=== PATIENT | female | born 1985 | race Caucasian/White ===

== ENCOUNTER 2018-01-20 22:27 | Emergency (ER) | payer SELFPAY ==
[~2018-01-20] VITALS: Ht 152.4 cm; Wt 67.6 kg
[2018-01-20 23:22] LABS: CULTURE INDICATED? YES; MICROSCOPIC INDICATED
[2018-01-20 23:23] LABS: HCG UR SG 1.018 (1.003-1.030)
[2018-01-20] MEDS ORDERED: LEVO88TA2 PO (23:37)
[2018-01-20] MEDS ORDERED: PHENAZOPYRIDINE 200 MG TABLET ONE (23:46)
[2018-01-20] MEDS ORDERED: ONDANSETRON ODT 4 MG ONE (23:46)
[2018-01-20] MEDS ORDERED: CIPROFLOXACIN 500 MG TABLET ONE (23:47)
[2018-01-21] MEDS ORDERED: PHENAZOPYRIDINE 200 MG TABLET PO ONE
[2018-01-21] MEDS ORDERED: CIPROFLOXACIN 500 MG TABLET PO ONE
[2018-01-21] MEDS ORDERED: ONDANSETRON ODT 4 MG PO ONE
[2018-01-21 00:02] VITALS: BP 144/109
== END 2018-01-21 00:05 | disposition home or self-care (01) ==
LOC: ED 23:57
DX: N30.90 Cystitis, unspecified without hematuria (principal); Z88.0 Allergy status to penicillin; Z87.891 Personal history of nicotine dependence
CPT/HCPCS: 81001; 81025; 87086; 99284; Q0162; 87077

== ENCOUNTER 2020-06-25 19:20 | Observation (INO) | payer OTHER ==
[~2020-06-25] VITALS: Ht 154.9 cm; Wt 77.0 kg
[~2020-06-25 19:20] MED LIST: LEVO88TA2 PO
[2020-06-25] MEDS ORDERED: LABETALOL 200 MG TABLET ONE (19:53)
[2020-06-25] MEDS ORDERED: PLEASE ENTER HEIGHT AND WEIGHT MC SCH (20:00)
[2020-06-25] MEDS ORDERED: LABETALOL 200 MG TABLET PO ONE (20:00)
[2020-06-25 20:19] VITALS: BP 158/109
[2020-06-25 20:37] LABS: BASOPHILS % (AUTO) 0 % (0-1); EOSINOPHILS % (AUTO) 1 % (1-7); LYMPHOCYTES % (AUTO) 18 % (22-44); MEAN CORPUSCULAR HEMOGLOBIN 30.8 pg (27.0-34.8); MEAN CORPUSCULAR HGB CONC 33.9 g/dL (32.4-35.8); MEAN PLATELET VOLUME 9.6 fL (7.4-10.4); MONOCYTES % (AUTO) 9 % (2-9); NEUTROPHILS % (AUTO) 71 % (42-75); PLATELET COUNT 175 x10^3/uL (130-400); RED BLOOD COUNT 4.16 x10^6/uL (3.82-5.3); RED CELL DISTRIBUTION WIDTH 13.6 % (9.6-15.2)
[2020-06-25 20:42] LABS: ALBUMIN 2.4 g/dL (3.4-5.0); ANION GAP 8 mmol/L (5-15); CALCIUM 8.5 mg/dL (8.5-10.1); CHLORIDE 109 mmol/L (98-107)
[2020-06-25 20:43] LABS: MD NO
[2020-06-25 20:46] LABS: ALANINE AMINOTRANSFERASE 25 U/L (12-78); ALKALINE PHOSPHATASE 121 U/L (45-117); BILIRUBIN,TOTAL 0.2 mg/dL (0.2-1.0); CREATININE 0.56 mg/dL (0.55-1.02); TOTAL PROTEIN 6.2 g/dL (6.4-8.2)
[2020-06-25 20:48] LABS: BILIRUBIN, DIRECT < 0.1 mg/dL (0.1-0.2)
[2020-06-25 20:51] LABS: MICROSCOPIC INDICATED
[2020-06-25] MEDS ORDERED: DIPHENHYDRAMINE 12.5MG/5ML, 10ML UDC PO PRN (21:00)
[2020-06-25] MEDS ORDERED: DIPHENHYDRAMINE 12.5MG/5ML ORAL SOL PO PRN (21:09)
[2020-06-25] MEDS ORDERED: PREN1COM10 PO (22:49)
== END 2020-06-25 23:26 | disposition home or self-care (01) ==
LOC: LDOP 19:20 → INTOOBSV 23:08 → LDIP 23:08
PROVIDERS: ADMIT Obstetrics & Gynecology; ATTEND Obstetrics & Gynecology
DX: O10.913 Unspecified pre-existing hypertension complicating pregnancy, third trimester (principal); Z88.0 Allergy status to penicillin; Z79.899 Other long term (current) drug therapy; Z3A.32 32 weeks gestation of pregnancy
CPT/HCPCS: 36415; 59025; 80053; 81001; 82248; 82570; 84156; 84550; 85025; 87086; G0378

== ENCOUNTER 2020-07-08 12:20 | Emergency (ER) | payer OTHER ==
[~2020-07-08 12:20] MED LIST changes: +PREN1COM10 PO
--- NOTE | 2020-07-08 12:25 | NUR ---
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
[2020-07-08 17:48] LABS: FREE T4 (FREE THYROXINE) 0.91 ng/dL (0.76-1.46)
[2020-07-08] MEDS ORDERED: LABE200T6 PO (19:34)
[2020-07-09] MEDS ORDERED: ONDANSETRON 2MG/ML, 2ML ONE (14:59)
[2020-07-09] MEDS ORDERED: MEPERIDINE/PF 50 MG/ML ONE (14:59)
[2020-07-09] MEDS ORDERED: PLEASE ENTER HEIGHT AND WEIGHT MC SCH (17:00)
[2020-07-09] MEDS ORDERED: KETOROLAC 30 MG/1 ML ONE (17:51)
== END 2020-07-08 15:24 ==
LOC: ED 15:18
DX: I10 Essential (primary) hypertension (principal); Z53.21 Procedure and treatment not carried out due to patient leaving prior to being seen by health care provider
CPT/HCPCS: 36415; 84439; 84443

== ENCOUNTER 2020-07-08 12:34 | Inpatient (IN) | payer OTHER ==
[2020-07-08] VITALS (7 sets, daily range): BP systolic 124–188; BP diastolic 73–138
[~2020-07-08] VITALS: Ht 154.9 cm; Wt 79.1 kg
[2020-07-08] MEDS ORDERED: BETAMETHASONE 6 MG/ML, 5ML IM ONE (13:07)
[2020-07-08] MEDS: BETAMETHASONE 6 MG/ML, 5ML IM SCH (13:12)
[2020-07-08] MEDS ORDERED: LABETALOL 5MG/ML, 20ML IVPush ONE (13:30)
[2020-07-08] MEDS ORDERED: LABETALOL 200 MG TABLET PO SCH (13:30)
[2020-07-08 13:52] LABS: BASOPHILS % (AUTO) 1 % (0-1); EOSINOPHILS % (AUTO) 1 % (1-7); LYMPHOCYTES % (AUTO) 20 % (22-44); MEAN PLATELET VOLUME 9.3 fL (7.4-10.4); MONOCYTES % (AUTO) 6 % (2-9); NEUTROPHILS % (AUTO) 72 % (42-75); PLATELET COUNT 164 x10^3/uL (130-400); RED BLOOD COUNT 4.28 x10^6/uL (3.82-5.3); RED CELL DISTRIBUTION WIDTH 14.3 % (9.6-15.2)
[2020-07-08 13:54] LABS: MD NO
[2020-07-08 14:01] LABS: ALANINE AMINOTRANSFERASE 29 U/L (12-78); ALBUMIN 2.1 g/dL (3.4-5.0); ANION GAP 9 mmol/L (5-15); CHLORIDE 111 mmol/L (98-107)
[2020-07-08 14:04] LABS: MICROSCOPIC INDICATED
[2020-07-08 14:04] LABS: ALKALINE PHOSPHATASE 138 U/L (45-117); BILIRUBIN,TOTAL 0.3 mg/dL (0.2-1.0); CREATININE 0.71 mg/dL (0.55-1.02); TOTAL PROTEIN 5.8 g/dL (6.4-8.2)
[2020-07-08 14:05] LABS: BILIRUBIN, DIRECT < 0.1 mg/dL (0.1-0.2)
[2020-07-08] MEDS ORDERED: LABETALOL 5MG/ML, 20ML ONE (16:25)
[2020-07-08] MEDS ORDERED: LABETALOL 5MG/ML, 20ML IVPush PRN ×3 (16:30)
[2020-07-08] MEDS ORDERED: hydrALAzine 20 MG/ML, 1ML IVPush ONE (17:00)
[2020-07-08] MEDS ORDERED: LABE200T6 PO (19:34)
[2020-07-08] MEDS ORDERED: MAGNESIUM SULFATE PMX 4GM/100M 100 ML ONE (20:17)
[2020-07-08] MEDS ORDERED: MAGNESIUM SULF. PMX 20GM/500ML 500 ML IV ONE (20:17)
[2020-07-08] MEDS ORDERED: ONDANSETRON 2MG/ML, 2ML IVPush PRN (20:30)
[2020-07-08] MEDS ORDERED: MAGNESIUM SULFATE PMX 4GM/100M 100 ML IVPB ONE (20:30)
[2020-07-08] MEDS ORDERED: ACETAMINOPHEN 325 MG TABLET ONE (20:33)
[2020-07-08] MEDS: ACETAMINOPHEN 325 MG TABLET PO PRN (20:35)
[2020-07-08] MEDS: MAGNESIUM SULF. PMX 20GM/500ML 500 ML IV SCH (21:04)
[2020-07-09] VITALS (7 sets, daily range): BP systolic 115–162; BP diastolic 62–101
[2020-07-09] MEDS ORDERED: ACETAMINOPHEN 325 MG TABLET ONE (02:28)
[2020-07-09] MEDS: ACETAMINOPHEN 325 MG TABLET PO PRN (02:29)
[2020-07-09 02:38] LABS: BASOPHILS % (AUTO) 0 % (0-1); EOSINOPHILS % (AUTO) 0 % (1-7); LYMPHOCYTES % (AUTO) 8 % (22-44); MEAN CORPUSCULAR HEMOGLOBIN 30.7 pg (27.0-34.8); MEAN CORPUSCULAR HGB CONC 33.8 g/dL (32.4-35.8); MEAN PLATELET VOLUME 9.4 fL (7.4-10.4); MONOCYTES % (AUTO) 3 % (2-9); NEUTROPHILS % (AUTO) 89 % (42-75); PLATELET COUNT 169 x10^3/uL (130-400); RED BLOOD COUNT 4.53 x10^6/uL (3.82-5.3); RED CELL DISTRIBUTION WIDTH 14.5 % (9.6-15.2)
[2020-07-09 03:06] LABS: ALANINE AMINOTRANSFERASE 33 U/L (12-78); ALBUMIN 2.3 g/dL (3.4-5.0); ANION GAP 9 mmol/L (5-15); CALCIUM 7.8 mg/dL (8.5-10.1); CHLORIDE 107 mmol/L (98-107); CREATININE 0.68 mg/dL (0.55-1.02)
[2020-07-09 03:07] LABS: ALKALINE PHOSPHATASE 146 U/L (45-117); BILIRUBIN,TOTAL 0.3 mg/dL (0.2-1.0); TOTAL PROTEIN 6.3 g/dL (6.4-8.2)
[2020-07-09 03:13] LABS: MD SCAN
[2020-07-09] MEDS ORDERED: CLINDAMYCIN PMX 900MG/50ML 50 ML IV SCH (05:30)
[2020-07-09] MEDS ORDERED: CLINDAMYCIN PMX 900MG/50ML 50 ML ONE (05:33)
[2020-07-09] MEDS ORDERED: OXYTOCIN 30U/ 0.9% NaCL 500ML 500 ML ONE (05:33)
[2020-07-09] MEDS ORDERED: D5%-LACTATED RINGERS 1,000 ML IV SCH (06:00)
[2020-07-09] MEDS ORDERED: OXYTOCIN 30U/ 0.9% NaCL 500ML 500 ML IV PRN (06:00)
[2020-07-09] MEDS ORDERED: TERBUTALINE 1 MG/ML, 1ML IVPush PRN (06:00)
[2020-07-09] MEDS ORDERED: FENTANYL PF 100 MCG/2ML IV PRN (06:00)
[2020-07-09] MEDS ORDERED: FENTANYL PF 100 MCG/2ML IVPush PRN (06:00)
[2020-07-09] MEDS ORDERED: TERBUTALINE 1 MG/ML, 1ML SQ PRN (06:00)
[2020-07-09] MEDS ORDERED: MAGNESIUM SULF. PMX 20GM/500ML 500 ML IV ONE ×2 (07:33→21:34)
[2020-07-09] MEDS: MAGNESIUM SULF. PMX 20GM/500ML 500 ML IV SCH ×2 (07:36→21:46)
[2020-07-09] MEDS ORDERED: NEWBORN KIT ONE (08:05)
[2020-07-09] MEDS: LACTATED RINGERS 1,000 ML IV PRN ×2 (08:18→12:31)
[2020-07-09] MEDS ORDERED: SODIUM CITRATE/CITRIC ACID 30 ML UDC PO ONE (08:30)
[2020-07-09] MEDS ORDERED: METOCLOPRAMIDE 5 MG/ML, 2ML IVPush ONE (08:30)
[2020-07-09] MEDS ORDERED: SODIUM CITRATE/CITRIC ACID 15 ML UDC ONE (10:44)
[2020-07-09] MEDS ORDERED: METOCLOPRAMIDE 5 MG/ML, 2ML ONE (10:44)
[2020-07-09 10:57] LABS: FREE T4 (FREE THYROXINE) 0.94 ng/dL (0.76-1.46)
[2020-07-09] MEDS ORDERED: ONDANSETRON 2MG/ML, 2ML ONE (11:04)
[2020-07-09] MEDS ORDERED: HYDROmorphone 2 MG/ML, 1ML ONE (11:04)
[2020-07-09] MEDS ORDERED: OXYTOCIN 10 UNITS/ML, 1ML ONE (11:04)
[2020-07-09] MEDS ORDERED: CEFAZOLIN 1,000 MG ONE (11:04)
[2020-07-09] MEDS ORDERED: FENTANYL PF 100 MCG/2ML ONE (11:04)
[2020-07-09] MEDS ORDERED: PROPOFOL 10 MG/ML, 20ML ONE (11:12)
[2020-07-09] MEDS ORDERED: DOCUSATE 100 MG CAPSULE PO PRN (11:30)
[2020-07-09] MEDS ORDERED: CARBOPROST TROMETHAMINE 250 MCG/ML, 1ML IM PRN ×2 (11:30→15:00)
[2020-07-09] MEDS ORDERED: SIMETHICONE 80 MG CHEW TAB PO PRN ×2 (11:30→15:00)
[2020-07-09] MEDS ORDERED: ACETAMINOPHEN 325 MG TABLET PO PRN ×2 (11:30→15:00)
[2020-07-09] MEDS ORDERED: OXYTOCIN 30U/ 0.9% NaCL 500ML 500 ML IV SCH (11:30)
[2020-07-09] MEDS ORDERED: LACTATED RINGERS 1,000 ML IV SCH ×2 (11:30)
[2020-07-09] MEDS ORDERED: MISOPROSTOL 200 MCG TABLET PR PRN ×2 (11:30→15:00)
[2020-07-09] MEDS ORDERED: OXYcodone/APAP 5/325MG TABLET PO PRN ×2 (11:30)
[2020-07-09] MEDS ORDERED: MEPERIDINE/PF 50 MG/ML IM PRN ×2 (11:30→15:00)
[2020-07-09] MEDS ORDERED: ONDANSETRON 2MG/ML, 2ML IV PRN ×2 (11:30→15:00)
[2020-07-09] MEDS ORDERED: KETOROLAC 30 MG/1 ML ONE (11:56)
[2020-07-09] MEDS ORDERED: LACTATED RINGERS 1,000 ML IVBOLUS ONE (12:30)
[2020-07-09] MEDS ORDERED: LABETALOL 200 MG TABLET ONE ×2 (12:44→21:39)
[2020-07-09] MEDS: LABETALOL 200 MG TABLET PO SCH ×2 (12:46→21:41)
[2020-07-09] MEDS: BETAMETHASONE 6 MG/ML, 5ML IM SCH (13:30)
[2020-07-09] MEDS ORDERED: MEPERIDINE/PF 100 MG/ML IVPush PRN (15:00)
[2020-07-09] MEDS ORDERED: HYDROcodone/APAP 5/325 TABLET PO PRN (15:00)
[2020-07-09] MEDS ORDERED: morphine SULFATE 10 MG/ML, 1ML IM PRN (15:00)
[2020-07-09] MEDS ORDERED: DIPH,PERTUSS(ACELL),TET VAC/PF NC IM-VACC PRN (15:00)
[2020-07-09] MEDS ORDERED: CALCIUM CARBONATE 500 MG TAB.CHEW PO PRN (15:00)
[2020-07-09] MEDS ORDERED: IBUPROFEN 600 MG TABLET PO PRN (15:00)
[2020-07-09] MEDS ORDERED: METHYLERGONOVINE 0.2 MG/ML IM PRN (15:00)
[2020-07-09] MEDS ORDERED: MEASLES,MUMPS&RUBELLA VACC/PF 0.5 ML SQ-VACC PRN (15:00)
[2020-07-09] MEDS ORDERED: RHOGAM FROM BLOOD BANK 1 NOTE EA IM/IV ONE (15:00)
[2020-07-09] MEDS ORDERED: morphine SULFATE 10 MG/ML, 1ML IVPush PRN (15:00)
[2020-07-09] MEDS ORDERED: BISACODYL 10 MG SUPP PR PRN (15:00)
[2020-07-09] MEDS ORDERED: MEPERIDINE/PF 50 MG/ML IVPush PRN (15:00)
[2020-07-09] MEDS ORDERED: OXYcodone IR 5MG TABLET PO PRN ×2 (15:00)
[2020-07-09] MEDS: OXYTOCIN 30U/ 0.9% NaCL 500ML 500 ML IV SCH (15:00)
[2020-07-09] MEDS: KETOROLAC 30 MG/1 ML IV SCH ×2 (17:53→18:30)
[2020-07-10] MEDS: OXYTOCIN 30U/ 0.9% NaCL 500ML 500 ML IV SCH ×2 (01:00→11:00)
[2020-07-10] MEDS: KETOROLAC 30 MG/1 ML IV SCH ×4 (01:15→19:26)
[2020-07-10] MEDS ORDERED: KETOROLAC 30 MG/1 ML ONE ×4 (01:34→19:11)
[2020-07-10] MEDS ORDERED: LABETALOL 200 MG TABLET ONE ×4 (05:58→22:07)
[2020-07-10] MEDS: LABETALOL 200 MG TABLET PO SCH ×3 (06:05→22:11)
[2020-07-10] MEDS ORDERED: niFEDipine ER 30 MG TABLET.ER ONE (06:43)
[2020-07-10] MEDS ORDERED: niFEDipine ER 30 MG TABLET.ER PO ONE (07:00)
[2020-07-10 07:15] LABS: BASOPHILS % (AUTO) 0 % (0-1); EOSINOPHILS % (AUTO) 1 % (1-7); LYMPHOCYTES % (AUTO) 18 % (22-44); MEAN CORPUSCULAR HEMOGLOBIN 30.7 pg (27.0-34.8); MEAN CORPUSCULAR HGB CONC 33.5 g/dL (32.4-35.8); MEAN PLATELET VOLUME 8.8 fL (7.4-10.4); MONOCYTES % (AUTO) 6 % (2-9); NEUTROPHILS % (AUTO) 75 % (42-75); PLATELET COUNT 167 x10^3/uL (130-400); RED BLOOD COUNT 3.86 x10^6/uL (3.82-5.3); RED CELL DISTRIBUTION WIDTH 14.8 % (9.6-15.2)
[2020-07-10] MEDS ORDERED: OXYcodone/APAP 5/325MG TABLET ONE ×4 (07:19→22:44)
[2020-07-10] MEDS: OXYcodone/APAP 5/325MG TABLET PO PRN ×4 (07:20→22:47)
[2020-07-10 07:25] LABS: ALANINE AMINOTRANSFERASE 25 U/L (12-78); ANION GAP 6 mmol/L (5-15); CALCIUM 6.4 mg/dL (8.5-10.1); CHLORIDE 103 mmol/L (98-107); CREATININE 0.75 mg/dL (0.55-1.02)
[2020-07-10 07:28] LABS: ALKALINE PHOSPHATASE 106 U/L (45-117); BILIRUBIN,TOTAL 0.3 mg/dL (0.2-1.0); TOTAL PROTEIN 5.4 g/dL (6.4-8.2)
[2020-07-10 08:17] LABS: MD SCAN
[2020-07-10] MEDS ORDERED: LABETALOL 200 MG TABLET PO ONE (08:30)
[2020-07-10] MEDS ORDERED: PRENATAL VIT/IRON/FA 1 EACH TABLET PO SCH (09:00)
[2020-07-10] MEDS ORDERED: FUROSEMIDE 20 MG/2 ML IV ONE (09:30)
[2020-07-10] MEDS ORDERED: PRENATAL VIT/IRON/FA 1 EACH TABLET ONE (10:20)
[2020-07-10] MEDS ORDERED: DOCUSATE 100 MG CAPSULE ONE (10:21)
[2020-07-10] MEDS: DOCUSATE 100 MG CAPSULE PO PRN (10:22)
[2020-07-10] MEDS: PRENATAL VIT/IRON/FA 1 EACH TABLET PO SCH (10:22)
[2020-07-10 19:13] VITALS: BP 150/91
[2020-07-10] MEDS ORDERED: MAGNESIUM SULF. PMX 20GM/500ML 500 ML IV SCH (20:30)
[2020-07-10 20:58] LABS: ALANINE AMINOTRANSFERASE 24 U/L (12-78); ANION GAP 6 mmol/L (5-15); CALCIUM 6.8 mg/dL (8.5-10.1); CHLORIDE 105 mmol/L (98-107)
[2020-07-10 21:01] LABS: ALKALINE PHOSPHATASE 103 U/L (45-117); BILIRUBIN,TOTAL 0.2 mg/dL (0.2-1.0); CREATININE 0.82 mg/dL (0.55-1.02); TOTAL PROTEIN 5.3 g/dL (6.4-8.2)
[2020-07-11] MEDS ORDERED: KETOROLAC 30 MG/1 ML ONE ×2 (01:42→10:39)
[2020-07-11] MEDS: KETOROLAC 30 MG/1 ML IV SCH ×2 (01:44→10:41)
[2020-07-11] MEDS ORDERED: LABETALOL 200 MG TABLET ONE ×4 (06:14→21:05)
[2020-07-11] MEDS: LABETALOL 200 MG TABLET PO SCH ×3 (06:18→21:11)
[2020-07-11 07:30] VITALS: BP 159/95
[2020-07-11] MEDS ORDERED: OXYcodone/APAP 5/325MG TABLET ONE ×3 (07:46→19:31)
[2020-07-11] MEDS ORDERED: DOCUSATE 100 MG CAPSULE ONE (07:47)
[2020-07-11] MEDS ORDERED: PRENATAL VIT/IRON/FA 1 EACH TABLET ONE (07:47)
[2020-07-11] MEDS: OXYcodone/APAP 5/325MG TABLET PO PRN ×3 (08:10→19:35)
[2020-07-11] MEDS: PRENATAL VIT/IRON/FA 1 EACH TABLET PO SCH (08:10)
[2020-07-11] MEDS: DOCUSATE 100 MG CAPSULE PO PRN (08:10)
[2020-07-11] MEDS: SODIUM CHLORIDE FLUSH 10ML SYR IVF SCH ×2 (08:10→21:13)
[2020-07-11] MEDS ORDERED: niFEDipine ER 30 MG TABLET.ER ONE (18:17)
[2020-07-11] MEDS ORDERED: niFEDipine ER 30 MG TABLET.ER PO ONE (18:30)
[2020-07-11 19:39] VITALS: BP 175/102
[2020-07-11 20:07] VITALS: BP 161/104
[2020-07-11 20:36] VITALS: BP 167/113
[2020-07-11 22:00] VITALS: BP 148/91
[2020-07-11 23:41] VITALS: BP 144/74
[2020-07-12] VITALS (12 sets, daily range): BP systolic 137–179; BP diastolic 91–112
[2020-07-12] MEDS ORDERED: hydrALAzine 20 MG/ML, 1ML IV PRN
[2020-07-12] MEDS ORDERED: OXYcodone/APAP 5/325MG TABLET ONE ×4 (01:35→22:48)
[2020-07-12] MEDS: OXYcodone/APAP 5/325MG TABLET PO PRN ×4 (01:38→22:50)
[2020-07-12] MEDS ORDERED: LABETALOL 200 MG TABLET ONE ×3 (05:18→21:13)
[2020-07-12] MEDS: LABETALOL 200 MG TABLET PO SCH ×3 (05:41→21:15)
[2020-07-12] MEDS ORDERED: LEVOTHYROXINE 88 MCG TABLET PO SCH (06:00)
[2020-07-12] MEDS: SODIUM CHLORIDE FLUSH 10ML SYR IVF SCH ×2 (07:30→18:34)
[2020-07-12] MEDS ORDERED: PRENATAL VIT/IRON/FA 1 EACH TABLET ONE (10:34)
[2020-07-12] MEDS ORDERED: DOCUSATE 100 MG CAPSULE ONE (10:34)
[2020-07-12] MEDS: DOCUSATE 100 MG CAPSULE PO PRN (10:36)
[2020-07-12] MEDS: PRENATAL VIT/IRON/FA 1 EACH TABLET PO SCH (10:36)
[2020-07-12] MEDS ORDERED: niFEDipine ER 30 MG TABLET.ER PO SCH (18:30)
[2020-07-12] MEDS ORDERED: niFEDipine ER 30 MG TABLET.ER ONE (18:33)
[2020-07-13] VITALS (7 sets, daily range): BP systolic 133–166; BP diastolic 77–96
[2020-07-13] MEDS ORDERED: hydrALAzine 20 MG/ML, 1ML IV PRN
[2020-07-13] MEDS ORDERED: LABETALOL 200 MG TABLET ONE (05:29)
[2020-07-13] MEDS: LABETALOL 200 MG TABLET PO SCH (05:31)
[2020-07-13] MEDS ORDERED: OXYcodone/APAP 5/325MG TABLET ONE ×2 (05:46→10:16)
[2020-07-13] MEDS: OXYcodone/APAP 5/325MG TABLET PO PRN ×3 (05:47→10:19)
[2020-07-13] MEDS ORDERED: NIFE30TA2 PO (10:02)
== END 2020-07-13 12:47 | disposition home or self-care (01) | DRG 788 ==
LOC: LDOP 12:34 → LDIP 13:58 → 2NE 07-09 14:14
PROVIDERS: ADMIT Obstetrics & Gynecology; ATTEND Hospitalist
PROC: 10D00Z1 Extraction of Products of Conception, Low, Open Approach (ICD-10-PCS; principal; 2020-07-09)
DX: O14.14 Severe pre-eclampsia complicating childbirth (principal); O99.284 Endocrine, nutritional and metabolic diseases complicating childbirth; O10.02 Pre-existing essential hypertension complicating childbirth; E03.9 Hypothyroidism, unspecified; F41.9 Anxiety disorder, unspecified; O99.344 Other mental disorders complicating childbirth; Z37.0 Single live birth; Z3A.34 34 weeks gestation of pregnancy; Z82.49 Family history of ischemic heart disease and other diseases of the circulatory system; Z83.3 Family history of diabetes mellitus; Z91.14 Patient's other noncompliance with medication regimen; Z20.828 Contact with and (suspected) exposure to other viral communicable diseases
CPT/HCPCS: 36415; J7121; 71045; 80053; 81001; 82248; 82570; 83735; 84156; 84439; 84443; 84550; 85025; 86592; 86850; 86900; 87635; 88307; G0378; J0690; J0702; J1170; J1885; J2175; J2405; J2704; J3010; J0360; J1940; J2590; J2765; J3475; J7120